=== PATIENT | female | born 1965 | race American Indian/Alaskan Native ===

== ENCOUNTER 2019-10-23 16:30 | Emergency (ER) | payer OTHER, MEDICARE ==
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
[2019-10-23] MEDS ORDERED: IBUPROFEN 600 MG TAB PO ONE (20:42)
[2019-10-23] MEDS ORDERED: ONDANSETRON 4 MG ODT TAB PO ONE (20:42)
[2019-10-23] MEDS ORDERED: oxyCODONE /ACETAMINOPHEN 5-325MG TAB PO ONE (20:42)
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
== END 2019-10-23 21:20 | disposition home or self-care (01) ==
LOC: ED 16:30
DX: M62.830 Muscle spasm of back (principal); M62.838 Other muscle spasm; F17.200 Nicotine dependence, unspecified, uncomplicated; Z90.710 Acquired absence of both cervix and uterus; Z79.899 Other long term (current) drug therapy; V89.2XXA Person injured in unspecified motor-vehicle accident, traffic, initial encounter; Y93.89 Activity, other specified; Y92.89 Other specified places as the place of occurrence of the external cause; Y99.8 Other external cause status
CPT/HCPCS: 72100; Q0162